=== PATIENT | female | born 1985 | race Caucasian/White ===

== ENCOUNTER → 2017-03-03 | Outpatient (CLI) | payer OTHER ==
[~2017-03-03] MED LIST: CLON0.5T3 PO
== END | disposition home or self-care (01) ==
LOC: C.PAPS 15:46
PROVIDERS: ATTEND Obstetrics & Gynecology
DX: Z12.4 Encounter for screening for malignant neoplasm of cervix (principal)

== ENCOUNTER → 2017-03-03 | Outpatient (CLI) | payer OTHER ==
[2017-03-01 10:05] VITALS: Ht 165.1 cm; Wt 72.7 kg
[~2017-03-03] VITALS: Ht 165.1 cm; Wt 72.7 kg
[2017-03-03 12:29] LABS: BASO % 0.3 %; BASO ABS # 0.04 K/uL (0-0.2); COMPLETE YES; EOS % 5.2 %; HEMATOCRIT 47.7 % (37-47); IG% 0.2 %; LYMPH % 19.1 %; LYMPH ABS # 2.21 K/uL (1.2-3.4); MEAN CELL VOLUME 92.4 fL (80-100); MEAN CORPUSCULAR HEMOGLOBIN 30.2 pg (25-34); MEAN CORPUSCULAR HGB CONC 32.7 g/dl (32-36); MEAN PLATELET VOLUME 11.4 fL (7.4-10.4); NEUT % 71.2 %; PLATELET COUNT 250 K/uL (130-400); RED BLOOD COUNT 5.16 M/uL (4.2-5.4); WHITE BLOOD COUNT 11.58 K/uL (4.8-10.8)
[2017-03-03 13:17] LABS: PREG INTERNAL NEGATIVE QC NEG CLEAR BACKGROUND; PREG INTERNAL POSITIVE QC POS CONTROL LINE
--- NOTE | 2017-03-03 14:30 | HISTORY & PHYSICAL EXAMINATION ---
DATE OF ADMISSION: 03/25/2017 ADMITTING DIAGNOSES: 1. Desired permanent surgical sterilization. 2. Menorrhagia with regular menstrual cycles. ADMISSION HISTORY: The patient is a 31-year-old 10, para 3, AB 7, last menstrual period of 16 February, who is admitted today for permanent surgical sterilization with placement of Mirena IUD. The patient adamantly desires no further childbearing capacity and is requesting permanent surgical sterilization. The patient has also been bothered by heavy menstrual cycles, the bleeding is regular with no intermenstrual bleeding, but it is heavy with the passages of clots. Treatment options were discussed and the patient is interested in Mirena IUD. PAST MEDICAL HISTORY: OBSTETRICAL: section x3. GYNECOLOGIC: 1. As above. 2. Hidradenitis suppurativa. 3. History of abnormal Pap smear. PAST MEDICAL HISTORY: Gestational diabetes. PAST SURGICAL HISTORY: Hernia repair, LEEP excision of transformation zone and appendectomy. REVIEW OF SYSTEMS: As per HPI. ADMISSION PHYSICAL EXAMINATION: GENERAL: Shows a pleasant female in no acute distress. VITAL SIGNS: Blood pressure 112/70, height of 5 feet 5 inches, and weight 162 pounds. HEENT EXAMINATION: Unremarkable. NECK: Supple. LUNGS: Clear. HEART: With a regular rhythm and rate. ABDOMEN: Soft and nontender with no palpable masses. No rebound, no guarding, and no organomegaly. Positive bowel sounds. PELVIC: Shows normal external genitalia. Vaginal wall is pink and rugated. Cervical os is closed. Bimanual examination shows an anterior mobile uterus. Adnexa show no palpable masses. RECTAL: Confirmatory. EXTREMITIES: Shows no deep calf tenderness. NEUROLOGIC: Grossly intact. IMPRESSION: A 31-year-old 10, para 3, AB 7 requesting permanent surgical sterilization by tubal ligation as well as Mirena IUD placement for menorrhagia. PLAN: Risks, benefits and alternatives to the surgery have been discussed. While the benefits will be permanent surgical sterilization, the risks are bleeding, infection, inadvertent injury to bowel or bladder or failure of the procedure itself, failure rate quoted at 1-3%. IUD will be placed for menorrhagia. Discussed risks including, inadvertent perforation as well as failure of the IUD to improve bleeding. The patient understands all of the above. The permit has been signed and she wishes to proceed.
== END | disposition home or self-care (01) ==
LOC: C.LAB 08:00 → EDSTATUS 03-25 14:49
PROVIDERS: ATTEND Obstetrics & Gynecology
DX: Z30.2 Encounter for sterilization (principal)

== ENCOUNTER → 2017-03-03 | Outpatient (CLI) | payer OTHER ==
[2017-03-03 14:27] LABS: URINE APPEARANCE CLEAR (CLEAR); URINE BILIRUBIN NEG (NEG); URINE COLOR YELLOW; URINE NITRITE NEG (NEG); URINE SPECIFIC GRAVITY 1.014 (1.000-1.030); UROBILINOGEN NEG (NEG)
[2017-03-03 14:29] LABS: MANUAL MICROSCOPIC REQUIRED? NO; REVIEW REQ? NO
== END | disposition home or self-care (01) ==
LOC: C.LABSPEC 13:34
PROVIDERS: ATTEND Obstetrics & Gynecology
DX: N39.0 Urinary tract infection, site not specified (principal)